=== PATIENT | male | born 1945 | race Caucasian/White ===

== ENCOUNTER 2018-04-03 20:40 | Inpatient (IN) | payer SELFPAY ==
[~2018-04-03] VITALS: Ht 165.1 cm; Wt 81.6 kg
--- NOTE | 2018-04-03 21:25 | NUR ---
BLOOD DRAWN AND GIVEN TO LAB
--- NOTE | 2018-04-03 21:29 | NUR ---
TECH AT BEDSIDE FOR EKG
[2018-04-03] MEDS ORDERED: ASPIRIN 325 MG TABLET PO ONE (21:30)
[2018-04-03] MEDS ORDERED: NITROGLYCERIN PACKET 1 GM PACKET TD ONE (21:30)
[2018-04-03 21:40] LABS: BASOPHILS % (AUTO) 0.3 % (0.0-2.0); EOSINOPHILS % (AUTO) 2.3 % (0.0-6.0); HEMATOCRIT 42 % (39-51); HEMOGLOBIN 13.9 g/dL (13.5-17.5); LYMPHOCYTES # (AUTO) 1.8 /CMM (0.8-4.8); LYMPHOCYTES % (AUTO) 18.6 % (20.0-44.0); MEAN CORPUSCULAR HGB CONC 33 g/dl (31.0-36.0); MEAN CORPUSCULAR VOLUME 96 fL (80-96); MONOCYTES # (AUTO) 0.8 /CMM (0.1-1.30); MONOCYTES % (AUTO) 8.1 % (2.0-12.0); NEUTROPHILS # (AUTO) 6.7 /CMM (1.8-8.9); NEUTROPHILS % (AUTO) 70.7 % (43.0-81.0); PLATELET COUNT (AUTO) 287 /CMM (150-450); RED BLOOD CELL COUNT(AUTO) 4.34 MIL/uL (4.5-6.0); WHITE BLOOD COUNT (AUTO) 9.5 K/uL (4.3-11.0)
[2018-04-03 21:55] LABS: CALCIUM, SERUM 8.9 mg/dL (8.5-10.1); CARBON DIOXIDE 29 mmol/L (21-32); CHLORIDE 101 mmol/L (98-107); CREATININE 1.1 mg/dL (0.6-1.3); GLUCOSE 184 mg/dL (74-106); POTASSIUM 3.8 mmol/L (3.5-5.1); SODIUM SERUM 138 mmol/L (136-145); UREA NITROGEN, BLOOD 13 mg/dL (7-18)
[2018-04-03] MEDS ORDERED: NITROGLYCERIN PACKET 1 GM PACKET ONE (22:00)
[2018-04-03] MEDS ORDERED: ASPIRIN 325 MG TABLET ONE (22:00)
[2018-04-03 22:01] LABS: ALANINE AMINOTRANSFERASE 30 U/L (12-78); ALBUMIN 3.6 g/dL (3.4-5.0); ALKALINE PHOSPHATASE 100 U/L (46-116); ASPARTATE AMINOTRANSFERASE 21 U/L (15-37); BILIRUBIN,DIRECT 0.1 mg/dL (0.0-0.2); BILIRUBIN,TOTAL 0.4 mg/dL (0.2-1.0); TOTAL PROTEIN, SERUM 8.2 g/dL (6.4-8.2)
--- NOTE | 2018-04-03 22:08 | NUR ---
ADMIT TO TELE 312-2 DX CHEST PAIN ACCEPTING SIVA MADRIGAL NP
[2018-04-03] MEDS ORDERED: ENOXAPARIN SODIUM 80 MG/0.8 ML DISP.SYRIN SQ ONE ×2 (22:22→22:30)
--- NOTE | 2018-04-03 22:43 | NUR ---
REPORT GIVEN TO SUZANNE RENTERIA FOR DANIEL
[2018-04-03 23:16] VITALS: BP 120/70
--- NOTE | 2018-04-03 23:30 | NUR ---
WELDING MACHINE OPERATOR GAS NOTE: RECEIVED PATIENT FROM ER, NO ACUTE DISTRESS NOTED, FAMILY AT BEDSIDE. BREATHING EVEN AND UNLABORED, NO SOB NOTED. PATIENT DENIES CHEST PAIN AT THIS TIME. IV TO RAC IN PLACE. ORIENTED PATIENT TO ROOM AND USE OF CALL LIGHT. WAITING FOR ADMIT ORDERS. BED LOCKED AND IN LOWEST POSITION, CALL LIGHT IN REACH. WILL CONTINUE TO MONITOR.
[2018-04-04] MEDS ORDERED: ONDANSETRON HCL/PF 4 MG/2 ML VIAL IVP PRN
[2018-04-04] MEDS ORDERED: ATORVASTATIN 10 MG TABLET PO SCH
[2018-04-04] MEDS ORDERED: DEXTROSE 50%-WATER 50 ML DISP.SYRIN IV PRN
[2018-04-04] MEDS ORDERED: HYDROCODONE/APAP 5/325MG 1 EACH TABLET PO PRN
[2018-04-04] MEDS ORDERED: MAGNESIUM HYDROXIDE 30 ML UDC PO PRN
[2018-04-04] MEDS ORDERED: Z GUARD REMEDY 2 OZ OINT TP PRN
[2018-04-04] MEDS ORDERED: ACETAMINOPHEN 325 MG TABLET PO PRN
[2018-04-04] MEDS ORDERED: INSULIN REGULAR, HUMAN 100 UNIT/ML 3 ML VIAL SQ PRN
[2018-04-04] MEDS ORDERED: ZOLPIDEM TARTRATE 5 MG TABLET PO PRN
--- NOTE | 2018-04-04 01:30 | NUR ---
SCREEDMAN NOTE: REPORT GIVEN TO KATIE, PATIENT RESTING IN BED, NO ACUTE DISTRESS NOTED. PATIENT TROP LEVEL ELEVATED AT 1.49, QUALITY CONTROL MICROBIOLOGY SUPERVISOR SIVA CASTRO, INFORMED. PATIENT ALREADY RECEIVED A DOSE OF LOVENOX IN ER. WILL CONTINUE TO MONITOR.
--- NOTE | 2018-04-04 01:45 | NUR ---
INSOLE STIFFENER OPENING NOTES: RECEIVED PT ON ROOM AIR AND IS TOLERATING WELL. AT BEDSIDE AT THIS TIME. NO S/S OF DISTRESS. PT RESTING COMFORTABLY AND IS ASLEEP. PT HAS IV ON R AC#20G AND IS PATENT AND INTACT. CURRENTLY H/L. PT ON TELE MONITOR AND READING SHOWS SB 59 AT THIS TIME. BED ALARM ACTIVATED. PT PORTUGUESE SPEAKING ONLY. BED KEPT IN LOW, LOCKED POSITION, AND SIDE RAILS X 2UP. WILL CONTINUE TO MONITOR PT.
--- NOTE | 2018-04-04 01:47 | NUR ---
RN NOTES: ARPAN MADRIGAL AWARE OF TROPONIN 1.491 AND LOVENOX GIVEN IN ER.
--- NOTE | 2018-04-04 03:47 | NUR ---
RN NOTES: ARPAN MADRIGAL AT BEDSIDE.
[2018-04-04 04:00] VITALS: BP 107/62
--- NOTE | 2018-04-04 06:51 | NUR ---
LEADERSHIP RECRUITER NOTES: BLOOD SUGAR THIS AM WAS 144. NO INSULIN WAS ADMINISTERED BREAKFAST TRAY WILL BE HELD TO BE SEEN BY CARDIO. WILL ENDORSE TO AM NURSE.
--- NOTE | 2018-04-04 06:56 | NUR ---
OIL RIG ROUGHNECK CLOSING NOTES: ALL NEEDS WERE ATTENDED AND ANTICIPATED FOR. PT ASLEEP AT THIS TIME. NO SOB NOTED. NO S/S OF DISTRESS. PT ON TELE MONITOR AND READING SHOWS SR 60S AT THIS TIME. IV REMAINS INTACT. CURRENTLY H/L. BED KEPT IN LOW, LOCKED POSITION, AND SIDE RAILS X 2UP. BLOOD SUGAR THIS AM WAS 144. HELD INSULIN BREAKFAST TRAY WILL BE HELD AND ACCUCHEKS ARE Q4HR. WILL ENDORSE TO AM NURSE FOR DANIEL.
[2018-04-04] MEDS ORDERED: BLOOD SUGAR DIAGNOSTIC 1 EACH STRIP IN SCH (07:30)
[2018-04-04 07:31] LABS: BASOPHILS % (AUTO) 0.4 % (0.0-2.0); EOSINOPHILS % (AUTO) 5.1 % (0.0-6.0); HEMATOCRIT 37 % (39-51); HEMOGLOBIN 12.5 g/dL (13.5-17.5); LYMPHOCYTES # (AUTO) 1.4 /CMM (0.8-4.8); LYMPHOCYTES % (AUTO) 15.2 % (20.0-44.0); MEAN CORPUSCULAR HGB CONC 33 g/dl (31.0-36.0); MEAN CORPUSCULAR VOLUME 96 fL (80-96); MONOCYTES # (AUTO) 0.7 /CMM (0.1-1.30); MONOCYTES % (AUTO) 7.7 % (2.0-12.0); NEUTROPHILS # (AUTO) 6.8 /CMM (1.8-8.9); NEUTROPHILS % (AUTO) 71.6 % (43.0-81.0); PLATELET COUNT (AUTO) 242 /CMM (150-450); WHITE BLOOD COUNT (AUTO) 9.5 K/uL (4.3-11.0)
[2018-04-04 07:42] LABS: CALCIUM, SERUM 8.5 mg/dL (8.5-10.1); CARBON DIOXIDE 30 mmol/L (21-32); CHLORIDE 106 mmol/L (98-107); GLUCOSE 174 mg/dL (74-106); MAGNESIUM 2.2 mg/dL (1.8-2.4); PHOSPHORUS 2.7 mg/dL (2.5-4.9); SODIUM SERUM 143 mmol/L (136-145); UREA NITROGEN, BLOOD 13 mg/dL (7-18)
[2018-04-04 07:51] LABS: CHOLESTEROL 165 mg/dL (<200); HDL CHOLESTEROL 37 mg/dL (40-60); LDL 120 mg/dL (0-99); TRIGLYCERIDES 95 mg/dL (30-150)
[2018-04-04 08:00] VITALS: BP 99/62
--- NOTE | 2018-04-04 08:20 | NUR ---
tele gis developer: notes dr. olivares here and made aware re: troponin=1.746.
[2018-04-04] MEDS ORDERED: FUROSEMIDE 40 MG/4 ML VIAL IV SCH (08:30)
[2018-04-04] MEDS ORDERED: CARVEDILOL 3.125 MG TABLET PO SCH (09:00)
[2018-04-04] MEDS ORDERED: POTASSIUM CHLORIDE 20 MEQ TAB.PRT.SR PO SCH (09:00)
[2018-04-04] MEDS ORDERED: ENOXAPARIN SODIUM 80 MG/0.8 ML DISP.SYRIN SQ SCH (09:00)
[2018-04-04] MEDS ORDERED: ASPIRIN 81 MG TAB.CHEW PO SCH (09:00)
--- NOTE | 2018-04-04 09:45 | NUR ---
tele print journalist: notes pt is wants to go voluntarily leaving the hospital without being seen by a physician. educated pt on risks and consequences involving in leaving hospital at this time. instructed pt to follow up with primary care physician as soon as possible, pt verbalized understanding. pt called to pick him up. tele removed. will continue to monitor. dr. bee (hospitalist) and dr. olivares (cardio) here and made aware. will continue to monitor.
--- NOTE | 2018-04-04 10:00 | NUR ---
m/s cover assembler: notes discharge ama including risks and consequences instructions given to pt and verbalized understanding. will continue to monitor.
[2018-04-04 10:16] VITALS: BP 104/54
--- NOTE | 2018-04-04 10:30 | NUR ---
m/s longwall headgate operator: notes h/l removed with tip intact. awaiting for to pick him up.
--- NOTE | 2018-04-04 10:35 | NUR ---
m/s pai gow manager: notes Dr. Riley spoke to pt prior to leaving the hospital and instructed pt to follow up with his primary care physician today and pt verbalized understanding with Malagasy staff translating
--- NOTE | 2018-04-04 11:00 | NUR ---
m/s automotive service technician: discharged ama discharged home against medical advice via private car accompanied by daughter with belongings.
== END 2018-04-04 11:00 | disposition left against medical advice (07) | DRG 280 ==
LOC: ER 20:43 → TELE 22:13
PROVIDERS: ADMIT Nurse Practitioner Acute Care; ATTEND Internal Medicine
DX: I21.4 Non-ST elevation (NSTEMI) myocardial infarction (principal); I50.33 Acute on chronic diastolic (congestive) heart failure; E66.9 Obesity, unspecified; E78.5 Hyperlipidemia, unspecified; Z68.30 Body mass index [BMI] 30.0-30.9, adult; Z91.19 Patient's noncompliance with other medical treatment and regimen; E11.65 Type 2 diabetes mellitus with hyperglycemia
CPT/HCPCS: 36415; 71045-TC; 80048-TC; 80061-TC; 80076-TC; 82962-TC; 83735-TC; 84100-TC; 84484-TC; 85025-TC; 85730-TC; 87081-TC; 93307-TC; G0378; J1650; J1815; J1940